=== PATIENT | female | born 1950 | race American Indian/Alaskan Native ===

== ENCOUNTER 2020-04-08 20:15 | Inpatient (IN) | payer OTHER ==
[2020-04-08] MEDS ORDERED: METHYLPREDNISOLONE 125 MG INJ ONE ×3 (20:25→21:38)
[2020-04-08] MEDS ORDERED: RSI MEDICATION KIT IV ONE (20:33)
[2020-04-08] MEDS ORDERED: LEVALBUTEROL 1.25 MG/3 ML NEB ONE (20:46)
[2020-04-08] MEDS ORDERED: FUROSEMIDE 40 MG/4 ML VIAL ONE (20:47)
[2020-04-08 20:50] LABS: Absolute Lymphocytes (CBC) 2.9 K/uL (0.7-4.9); Basophils % 0.5 % (0-1.3); Hematocrit 43.8 % (36.0-45.0); Lymphocytes % 22.2 % (15.3-44.8); MPV 9.8 fL (7.6-11.3); RBC Red Blood Cell Count 5.02 M/uL (3.86-4.86)
[2020-04-08 20:59] LABS: Protime INR 0.98
--- NOTE | 2020-04-08 20:59 | RAD REPORT ---
EXAM DESCRIPTION: RAD - Chest Single View - 04/08/2020 8:48 pm CLINICAL HISTORY: DYSPNEA Chest pain. COMPARISON: <Comparisons> FINDINGS: Portable technique limits examination quality. Mild bilateral interstitial lung opacities are present, slightly greater on the right, suspicious for interstitial pneumonitis/ viral pneumonitis. The heart is mildly enlarged in size. No displaced frac tures.
[2020-04-08 21:05] LABS: ALT/SGPT 29 U/L (12-78); AST/SGOT 20 U/L (15-37); Albumin 4.3 g/dL (3.4-5.0); Alkaline Phosphatase 129 U/L (45-117); Amylase 69 U/L (25-115); BUN Blood Urea Nitrogen 25 mg/dL (7-18); Bicarbonate 29 mmol/L (21-32); Bilirubin Direct < 0.1 mg/dL (0-0.2); Bilirubin Total 0.3 mg/dL (0.2-1.0); CKMB Creatine Kinase MB 1.8 ng/mL (0.3-3.6); Creatine Phosphokinase 79 U/L (26-192); Glucose Level 291 mg/dL (74-106); Lipase 114 U/L (73-393); Potassium 4.1 mmol/L (3.5-5.1); Protein, Total 8.1 g/dL (6.4-8.2); Sodium Level 139 mmol/L (136-145); Troponin (Emerg Dept Use Only) < 0.02 ng/mL (0.0-0.045)
[2020-04-08 21:20] LABS: Urine Blood TRACE (NEG); Urine Glucose TRACE (NEG); Urine Protein 3+ (NEG); Urine Specific Gravity 1.025 (1.005-1.030)
[2020-04-08] MEDS ORDERED: NA CHLORIDE 0.9% 250 ML ONE (21:51)
[2020-04-08] MEDS ORDERED: AZITHROMYCIN 500 MG INJ IVPB ONE (21:51)
[2020-04-08] MEDS ORDERED: CEFTRIAXONE/SWI 1gm 1 GM/10 ML SYR ONE (21:52)
[2020-04-08 22:14] LABS: Urine Bacteria <20 /HPF (<20); Urine Culture Reflex Order NOT NEEDED; Urine RBC <5 /HPF (NONE SEEN)
--- NOTE | 2020-04-08 22:26 | ER ---
Nurse's Notes [facility] Name: Ruth Aguero Age: 69 yrs Sex: Female : 1950 Arrival Date: 04/08/2020 Time: 20:20 Bed 4 Private MD: Diagnosis: Acute respiratory failure with hypoxia;Pneumonia due to other specified bacteria Presentation: 04/08 20:15 Chief complaint: EMS states: PATIENT DOES NOT HAVE ANY COMPLAINS PRIOR. WITH SUDDEN rv ONSET OF SOB. 72% OXYGEN SATURATION AT THE SCENE, GIVEN OXYGEN TREATMENT. DENIES ANY PAIN. 20:15 Coronavirus screen: Patient denies a cough. Patient reports shortness of breath or rv difficulty breathing. Patient denies measured and/or subjective temperature greater than 100.4F prior to today's visit. Patient denies travel on a cruise ship or to a country the [facility] currently lists as an affected area. Patient denies contact with known and/or suspected case of COVID-19. Ebola Screen: No symptoms or risks identified at this time. Initial Sepsis Screen: Does the patient meet any 2 criteria? RR > 20 per min. HR > 90 bpm. Yes Does the patient have a suspected source of infection? Yes: Productive cough/pneumonia. Risk Assessment: Do you want to hurt yourself or someone else? Patient reports no desire to harm self or others. Onset of symptoms was April 08, 2020 at 20:00. 20:15 Method Of Arrival: EMS: [facility] rv 21:21 Acuity: ALEX 2 rv Triage Assessment: 20:15 General: Appears uncomfortable, ill. rv Historical: - Allergies: 21:17 No Known Allergies; rv - PMHx: 21:17 Hypertension; Diabetes - IDDM; Angina; rv - PSHx: 21:17 Heart stents; rv - Immunization history:: Adult Immunizations up to date. - Social history:: Smoking status: Patient denies any tobacco usage or history of. Screenin:21 Abuse screen: Denies threats or abuse. Denies injuries from another. Nutritional rv screening: No deficits noted. Tuberculosis screening: No symptoms or risk factors identified. Fall Risk None identified. Assessment: 21:12 General: Appears uncomfortable, ill, Behavior is restless. Pain: Denies pain. Neuro: rv Level of Consciousness is awake, alert, obeys commands, Oriented to person, place, time, situation. Cardiovascular: Rhythm is sinus tachycardia. Respiratory: Airway is patent Respiratory effort is labored, Respiratory pattern is tachypnea Patient placed on BiPAP: FiO2%: 40 Breath sounds with wheezes bilaterally. GI: Abdomen is round distended. Derm: Skin is intact. 21:20 Reassessment: PATIENT VERBALIZED THAT SHE IS FEELING BETTER. COMFORTABLE ON BIPAP. rv ALERT AND ORIENTED. Patient states feeling better. Patient states symptoms have improved. Neuro: Level of Consciousness is awake, alert, obeys commands, Oriented to person, place, time, situation. Respiratory: Airway is patent Respiratory effort is even, unlabored. 22:40 General: Appears comfortable, Behavior is calm, cooperative. Neuro: Level of rv Consciousness is awake, alert, obeys commands, Oriented to person, place, time, situation. Cardiovascular: Rhythm is sinus rhythm. Respiratory: Airway is patent Respiratory effort is even, unlabored. 23:43 Reassessment: DAUGHTER ASKED ABOUT THE POSSIBILITY OF TRANSFERRING THE PATIENT TO OTHER HOSPITAL. EXPLAINED THE PLAN OF CARE TO THE RELATIVE. REGAN SEGURA ALSO TALKED TO THE DAUGHTER. Patient states symptoms have improved. 04/09 00:06 Reassessment: BIPAP DISCONTINUED. GIVEN OXYGEN VIA NASAL CANNULA, 2 LPM. RESPIRATORY rv STATUS STABLE. Respiratory: Airway is patent Respiratory effort is even, unlabored. Vital Signs: 04/08 20:30 BP 177 / 132; Pulse 105; Resp 27; Temp 97; Pulse Ox 100% on 40% BiPAP; rv 20:30 Weight 68.04 kg; Pain 0/10; rv 20:45 BP 191 / 78; Pulse 95; Resp 28; Pulse Ox 100% on 40% BiPAP; rv 21:00 BP 167 / 82; Pulse 90; Resp 27; Temp 96.9; Pulse Ox 100% on 40% BiPAP; rv 21:15 BP 185 / 76; Pulse 85; Resp 27; Temp 96.9(C); Pulse Ox 100% on 40% BiPAP; rv 21:30 BP 183 / 74; Pulse 82; Resp 26; Temp 97; Pulse Ox 100% on 40% BiPAP; rv 21:45 BP 183 / 75; Pulse 81; Resp 22; Temp 97.1(C); Pulse Ox 100% on 40% BiPAP; rv 22:30 BP 152 / 56; Pulse 84 MON; Resp 22; Temp 97.5(C); Pulse Ox 100% on 40% BiPAP; rv 23:00 BP 142 / 73; Pulse 84 MON; Resp 22; Temp 97.4(C); Pulse Ox 100% on 40% BiPAP; rv 23:30 BP 165 / 86; Pulse 86 MON; Resp 25; Temp 97.5(C); Pulse Ox 100% on 40% BiPAP; rv 04/09 00:07 BP 150 / 66; Pulse 84 MON; Resp 21; Temp 98.4(C); Pulse Ox 99% on 2 lpm NC; rv 22:30 Normal Sinus Rhythm rv 23:00 Normal Sinus Rhythm rv 23:30 Normal Sinus Rhythm rv 04/09 00:07 Normal Sinus Rhythm rv ED Course: 04/08 20:20 Patient arrived in ED. sg 20:26 Anjel Harris is Primary Nurse. 20:30 Initial lab(s) drawn, by ED staff, sent to lab. First set of blood cultures drawn by ED sg staff. 20:30 Inserted saline lock: 18 gauge in left antecubital area, using aseptic technique. Blood rv collected. 20:30 Patient has correct armband on for positive identification. Placed in gown. Bed in low rv position. Call light in reach. Side rails up X2. patient monitor on. Pulse ox on. NIBP on. 20:30 Door closed. Warm blanket given. Head of bed elevated. rv 20:36 Regan Segura PA is PHCP. cp 20:36 Marcelo Mcclellan MD is Attending Physician. cp 20:40 Second set of blood cultures drawn by ED staff. sg 20:40 Inserted saline lock: 18 gauge in right forearm, using aseptic technique. Blood rv collected. 20:45 Terrazas cath inserted, using sterile technique, 16 Fr., by co, balloon inflated, to rv gravity drainage, urine specimen collected. Patient tolerated well. 20:49 Chest Single View XRAY In Process Unspecified. EDMS 21:13 Arm band placed on. sg 21:24 Triage completed. rv 22:24 Paulie Anne MD is Hospitalizing Provider. cp 23:36 CT Chest For PE Angio In Process Unspecified. EDMS 04/09 00:06 No provider procedures requiring assistance completed. IV is patent, with fluids rv infusing freely, with good blood return, Patient admitted, IV remains in place. Administered Medications: 04/08 20:36 CANCELLED (Physician Discretion): NS 0.9% (30 ml/kg) 30 ml/kg IV at bolus once; Sepsis cp Protocol 20:50 Drug: Lasix 40 mg Route: IVP; Site: right forearm; rv 21:56 Follow up: Response: No adverse reaction rv 21:00 Drug: SOLU-Medrol 125 mg Route: IVP; Site: right forearm; rv 21:56 Follow up: Response: No adverse reaction; Marked relief of symptoms rv 21:00 Drug: Xopenex (3) 1.25 mg Route: Inhalation; rv 21:57 Follow up: Response: Marked relief of symptoms rv 21:35 Drug: Rocephin - (cefTRIAXone) 1 grams Route: IVPB; Infused Over: 30 mins; Site: left rv antecubital; 21:56 Follow up: IV Status: Completed infusion rv 21:36 Drug: Zithromax 500 mg Route: IVPB; Infused Over: 1 hrs; Site: left antecubital; rv 22:41 Follow up: IV Status: Completed infusion; IV Intake: 250ml rv Intake: 22:41 IV: 250ml; Total: 250ml. rv Output: 21:57 Urine: 700ml (Terrazas); Total: 700ml. rv Outcome: 22:25 Decision to Hospitalize by Provider. cp 04/09 00:09 Admitted to Tele accompanied by tech, via stretcher, room 406, Report called to PATI roque RN Condition: good Instructed on the need for admit. 00:10 Patient left the ED. rv Signatures: Dispatcher [employer] Shahab Melgar, RN RN Regan Cunha PA PA cp Habalo, Winsy wh Vicente, Ronaldo, RN RN rv Corrections: (The following items were deleted from the chart) 04/08 21:29 21:15 BP 185 / ???; Pulse 76bpm; Resp 27bpm; Pulse Ox 100% 02 40% BiPAP; Temp 96.9F rv Catheter; rv
--- NOTE | 2020-04-08 22:26 | EDPHYS ---
Physician Documentation [facility] Name: Ruth Aguero Age: 69 yrs Sex: Female : 1950 Arrival Date: 04/08/2020 Time: 20:20 Bed 4 Private MD: ED Physician Marcelo Mcclellan HPI: 04/08 20:40 This 69 yrs old Other Female presents to ER via EMS with complaints of Shortness of cp Breath. 20:40 The patient has shortness of breath at rest. Onset: The symptoms/episode began/occurred cp today. Duration: The symptoms are continuous, and are steadily getting worse. Associated signs and symptoms: Pertinent negatives: chest pain, productive cough, diaphoresis, fever. Severity of symptoms: in the emergency department the symptoms have improved mildly. The patient has experienced similar episodes in the past, a few times. Historical: - Allergies: 21:17 No Known Allergies; rv - PMHx: 21:17 Hypertension; Diabetes - IDDM; Angina; rv - PSHx: 21:17 Heart stents; rv - Immunization history:: Adult Immunizations up to date. - Social history:: Smoking status: Patient denies any tobacco usage or history of. ROS: 20:45 Constitutional: Negative for fever, poor PO intake. cp 20:45 Eyes: Negative for injury, pain, redness, and discharge. cp 20:45 Cardiovascular: Negative for chest pain. 20:45 Respiratory: Positive for shortness of breath, at rest. 20:45 Abdomen/GI: Negative for abdominal pain, nausea, vomiting, and diarrhea. 20:45 Skin: Negative for rash. 20:45 Neuro: Negative for altered mental status, headache, syncope, weakness. 20:45 All other systems are negative. Exam: 20:30 ECG was reviewed by the Attending Physician. cp 20:48 Head/Face: Normocephalic, atraumatic. cp 20:48 Constitutional: The patient appears in no acute distress, alert, awake, non-diaphoretic, non-toxic, well developed, well nourished. 20:48 Eyes: Periorbital structures: appear normal, Conjunctiva: normal, no exudate, no injection, Lids and lashes: appear normal, bilaterally. 20:48 ENT: External ear(s): are unremarkable, Ear canal(s): are normal, clear, TM's: dullness, bilaterally, Nose: is normal, Mouth: Lips: moist, Oral mucosa: pink and intact, moist, Posterior pharynx: is normal, airway is patent, no erythema, no exudate. 20:48 Chest/axilla: Inspection: normal, Palpation: is normal, no crepitus, no tenderness. 20:48 Cardiovascular: Rate: normal, Rhythm: regular, Edema: is not appreciated, JVD: is not appreciated. 20:48 Respiratory: the patient does not display signs of respiratory distress, Respirations: labored breathing, is not present, accessory muscle usage, is absent, intercostal retractions, are absent, splinting, is not noted, tachypnea, is not appreciated, Breath sounds: decreased breath sounds, that are mild, throughout, rhonchi, are not appreciated, stridor, is not appreciated, wheezing: is not appreciated. 20:48 Abdomen/GI: Exam negative for discomfort, distension, guarding, Inspection: abdomen appears normal. 20:48 Back: pain, is absent, ROM is normal. 20:48 Skin: no rash present. 20:48 Neuro: Orientation: to person, place \T\ time. Mentation: is normal, Motor: moves all fours, strength is normal. Vital Signs: 20:30 BP 177 / 132; Pulse 105; Resp 27; Temp 97; Pulse Ox 100% on 40% BiPAP; rv 20:30 Weight 68.04 kg; Pain 0/10; rv 20:45 BP 191 / 78; Pulse 95; Resp 28; Pulse Ox 100% on 40% BiPAP; rv 21:00 BP 167 / 82; Pulse 90; Resp 27; Temp 96.9; Pulse Ox 100% on 40% BiPAP; rv 21:15 BP 185 / 76; Pulse 85; Resp 27; Temp 96.9(C); Pulse Ox 100% on 40% BiPAP; rv 21:30 BP 183 / 74; Pulse 82; Resp 26; Temp 97; Pulse Ox 100% on 40% BiPAP; rv 21:45 BP 183 / 75; Pulse 81; Resp 22; Temp 97.1(C); Pulse Ox 100% on 40% BiPAP; rv 22:30 BP 152 / 56; Pulse 84 MON; Resp 22; Temp 97.5(C); Pulse Ox 100% on 40% BiPAP; rv 23:00 BP 142 / 73; Pulse 84 MON; Resp 22; Temp 97.4(C); Pulse Ox 100% on 40% BiPAP; rv 23:30 BP 165 / 86; Pulse 86 MON; Resp 25; Temp 97.5(C); Pulse Ox 100% on 40% BiPAP; rv 04/09 00:07 BP 150 / 66; Pulse 84 MON; Resp 21; Temp 98.4(C); Pulse Ox 99% on 2 lpm NC; rv 22:30 Normal Sinus Rhythm rv 23:00 Normal Sinus Rhythm rv 23:30 Normal Sinus Rhythm rv 04/09 00:07 Normal Sinus Rhythm rv MDM: 04/08 20:40 Patient medically screened. cp 21:38 Antibiotic administration: Rocephin and Zithromax given. cp 22:10 Data reviewed: vital signs, nurses notes, lab test result(s), EKG, radiologic studies, cp plain films, I have discussed the patient's presentation/case with the attending Emergency Department Physician; and as a result, I will admit patient. 22:10 Test interpretation: by ED physician or midlevel provider: ECG. Response to treatment: cp the patient's symptoms have markedly improved after treatment. Physician consultation: Paulie Anne MD was contacted at 22:05, regarding admission, to the telemetry unit. patient's condition. 04/08 20:27 Order name: Amylase, Serum; Complete Time: 23:24 04/08 20:27 Order name: Basic Metabolic Panel; Complete Time: 23:24 04/08 22:07 Interpretation: Normal except: GLUC 291; BUN 25; GFR 56. 04/08 20:27 Order name: Blood Culture Adult (2) 04/08 20:27 Order name: CBC with Diff; Complete Time: 21:01 04/08 21:02 Interpretation: Normal except: WBC 12.9; RBC 5.02; NEUT A 9.0. 04/08 20:27 Order name: Ckmb; Complete Time: 23:24 04/08 20:27 Order name: CPK; Complete Time: 23:24 04/08 20:27 Order name: Lactate; Complete Time: 21:30 04/08 20:27 Order name: LFT's; Complete Time: 23:24 04/08 20:27 Order name: Lipase; Complete Time: 23:24 04/08 20:27 Order name: Procalcitonin; Complete Time: : 04/08 20:27 Order name: Protime (+inr); Complete Time: : 04/08 20:27 Order name: Ptt, Activated; Complete Time: : 04/08 20:27 Order name: Troponin (emerg Dept Use Only); Complete Time: 23: 04/08 20:27 Order name: Urine Microscopic Only; Complete Time: 22: 04/08 20:27 Order name: Chest Single View XRAY; Complete Time: 21: 04/08 20:53 Order name: Flu; Complete Time: 22: 04/08 20:53 Order name: Strep; Complete Time: 22: 04/08 20:53 Order name: COVID-19; Complete Time: 22: 04/08 21:04 Order name: Urine Dipstick--Ancillary (enter results); Complete Time: 21:29 [facility] 04/08 21:34 Order name: CT Chest For PE Angio 04/08 22:16 Order name: LAB Add On 04/08 22:21 Order name: NT PRO-BNP; Complete Time: 23:24 [facility] 04/08 23:24 Interpretation: Abnormal: NT PRO-BNP 195. 04/08 23:36 Order name: Troponin I [facility] 04/08 23:36 Order name: Troponin I [facility] 04/08 20:27 Order name: Accucheck; Complete Time: : 04/08 20:27 Order name: Cardiac monitoring; Complete Time: 22: 04/08 20:27 Order name: EKG - Nurse/Tech; Complete Time: 22: 04/08 20:27 Order name: IV Saline Lock - Large Bore; Complete Time: : 04/08 20:27 Order name: Labs collected and sent; Complete Time: : 04/08 20:27 Order name: O2 Per Protocol; Complete Time: 22: 04/08 20:27 Order name: O2 Sat Monitoring; Complete Time: : 04/08 20:27 Order name: Urine Dipstick-Ancillary (obtain specimen); Complete Time: : 04/08 23:35 Order name: CONS Physician Consult EDMS EC:30 Rate is 107 beats/min. Rhythm is regular. TX interval is normal. QRS interval is cp normal. QT interval is normal. T waves are Inverted in leads I, aVL. Interpreted by me. Reviewed by me. Administered Medications: 20:36 CANCELLED (Physician Discretion): NS 0.9% (30 ml/kg) 30 ml/kg IV at bolus once; Sepsis cp Protocol 20:50 Drug: Lasix 40 mg Route: IVP; Site: right forearm; rv 21:56 Follow up: Response: No adverse reaction rv 21:00 Drug: SOLU-Medrol 125 mg Route: IVP; Site: right forearm; rv 21:56 Follow up: Response: No adverse reaction; Marked relief of symptoms rv 21:00 Drug: Xopenex (3) 1.25 mg Route: Inhalation; rv 21:57 Follow up: Response: Marked relief of symptoms rv 21:35 Drug: Rocephin - (cefTRIAXone) 1 grams Route: IVPB; Infused Over: 30 mins; Site: left rv antecubital; 21:56 Follow up: IV Status: Completed infusion rv 21:36 Drug: Zithromax 500 mg Route: IVPB; Infused Over: 1 hrs; Site: left antecubital; rv 22:41 Follow up: IV Status: Completed infusion; IV Intake: 250ml rv Disposition: 04/09 07:23 Co-signature as Attending Physician, Marcelo Mcclellan MD I agree with the assessment and [facility] plan of care. Disposition: 04/08/20 22:25 Hospitalization ordered by Paulie Anne for Inpatient Admission. Preliminary diagnosis are Acute respiratory failure with hypoxia, Pneumonia due to other specified bacteria. - Bed requested for Telemetry/MedSurg (Inpatient). - Status is Inpatient Admission. rv - Condition is Stable. - Problem is new. - Symptoms have improved. Signatures: Dispatcher [employer] [facility] Etta Marquez RN RN mw Page, Corey, PA PA cp Habalo, Winsy Cliff Pérez RN RN rv Holmes, Maurice, MD MD [facility] Corrections: (The following items were deleted from the chart) 04/08 20:36 20:27 NS 0.9% (30 ml/kg) 30 ml/kg IV at bolus once; Sepsis Protocol ordered. cp 22:21 22:16 PROBNP+C.LAB.BRZ ordered. [facility] EDMS 22:43 22:25 Hospitalization Ordered by Paulie Anne MD for Inpatient Admission. Preliminary diagnosis is Acute respiratory failure with hypoxia; Pneumonia due to other specified bacteria. Bed requested for Telemetry/MedSurg (Inpatient). Status is Inpatient Admission. Condition is Stable. Problem is new. Symptoms have improved. 22:44 22:43 04/08/2020 22:25 Hospitalization Ordered by Paulie Anne MD for Inpatient mw Admission. Preliminary diagnosis is Acute respiratory failure with hypoxia; Pneumonia due to other specified bacteria. Bed requested for Telemetry/MedSurg (Inpatient). Status is Inpatient Admission. Condition is Stable. Problem is new. Symptoms have improved. 23:36 23:35 Troponin I ordered. [facility] 23:36 23:35 Troponin I ordered. [facility] 23:36 23:35 Troponin I ordered. [facility] 04/09 00:10 04/08 22:44 04/08/2020 22:25 Hospitalization Ordered by Paulie Anne MD for Inpatient rv Admission. Preliminary diagnosis is Acute respiratory failure with hypoxia; Pneumonia due to other specified bacteria. Bed requested for Telemetry/MedSurg (Inpatient). Status is Inpatient Admission. Condition is Stable. Problem is new. Symptoms have improved. 04/09 11:32 11:30 This 69 yrs old Other Female presents to ER via EMS with complaints of Shortness cp of Breath. cp 11:40 04/08 23:16 Constitutional: The patient appears in no acute distress, alert, awake, cp non-diaphoretic, non-toxic, well developed, well nourished, cp 04/09 11:40 04/08 23:16 Head/Face: Normocephalic, atraumatic. cp cp 04/09 11:40 04/08 23:16 Eyes: Periorbital structures: appear normal, Conjunctiva: normal, no cp exudate, no injection, Lids and lashes: appear normal, bilaterally, cp 04/09 11:40 04/08 23:16 ENT: External ear(s): are unremarkable, Ear canal(s): are normal, clear, cp TM's: dullness, bilaterally, Nose: is normal, Mouth: Lips: moist, Oral mucosa: pink and intact, moist, Posterior pharynx: is normal, airway is patent, no erythema, no exudate, cp 04/09 11:40 04/08 23:16 Chest/axilla: Inspection: normal, Palpation: is normal, no crepitus, no cp tenderness, cp 04/09 11:40 04/08 23:16 Cardiovascular: Rate: normal, Rhythm: regular, Edema: is not appreciated, cp JVD: is not appreciated, cp 04/09 11:04/08 23:16 Respiratory: the patient does not display signs of respiratory distress, cp Respirations: labored breathing, is not present, accessory muscle usage, is absent, intercostal retractions, are absent, splinting, is not noted, tachypnea, is not appreciated, Breath sounds: decreased breath sounds, that are mild, throughout, rhonchi, are not appreciated, stridor, is not appreciated, wheezing: is not appreciated, cp 04/09 11:04/08 23:16 Abdomen/GI: Exam negative for discomfort, distension, guarding, Inspection: cp abdomen appears normal, cp 04/09 11:40 04/08 23:16 Back: pain, is absent, ROM is normal, cp cp 04/09 11:04/08 23:16 Skin: no rash present. cp cp 04/09 11:04/08 23:16 Neuro: Orientation: to person, place \T\ time. Mentation: is normal, Motor: cp moves all fours, strength is normal, cp
[2020-04-08 22:33] LABS: NT PRO-BNP 195 pg/mL (<125)
[2020-04-08] MEDS ORDERED: ACETAMINOPHEN 500 MG TAB PO PRN (23:29)
[2020-04-08] MEDS ORDERED: NA CHLORIDE 0.9% 1,000 ML IV SCH (23:45)
--- NOTE | 2020-04-09 00:51 | P.HP ---
Certification for Inpatient Patient admitted to: Inpatient With expected LOS: >2 Midnights Patient will require the following post-hospital care: None Practitioner: I am a practitioner with admitting privileges, knowledge of patient current condition, hospital course, and medical plan of care. Services: Services provided to patient in accordance with Admission requirements found in Title 42 Section 412.3 of the Code of Federal Regulations Patient History Date of Service: 04/09/20 Reason for admission: Acute respiratory distress History of Present Illness: Patient is a 69-year-old female came to the hospital with respiratory distress. Patient was having difficulty breathing and came into the ER. Her family lives in [place]. I am not really sure why she was brought to our facility, but there has been over crowding in the facilities in the [place] area. She has been at [facility] a year ago for similar episode of respiratory dist ress. At that time, she was given BiPAP support and her symptoms gradually improved. The family relates that it was similar to an asthma exacerbation. However, in light of the fact that she has a history of Coronary artery disease with stent placement my concern is that she may have CHF. Her BNP was normal. However, she does have JVP distention. She does not have any lower extremity edema but her chest x-ray shows bilateral infiltrates. At this time, I will admit patient to the hospital for further evaluation. Allergies No Known Allergies Allergy (Verified 04/09/20 00:05) - Past Medical/Surgical History -: Coronary artery disease -: Diabetes Past Surgical History: Patient denies surgical history - Family History Father Family History: Reviewed- Non-Contributory - Social History Smoking Status: Never smoker Alcohol use: No CD- Drugs: No Review of Systems 10-point ROS is otherwise unremarkable Physical Examination - Vital Signs Temperature: 98.8 F Blood Pressure: 210/110 Respirations: 18 Pulse Ox (%): 96 - Physical Exam General: Alert, In no apparent distress, Oriented x3 HEENT: Atraumatic, PERRLA, Mucous membr. moist/pink, EOMI, Sclerae nonicteric Neck: Supple, 2+ carotid pulse no bruit, No LAD, Without JVD or thyroid abnormality Respiratory: Diminished, Crackles/rales, Expiratory wheezes Cardiovascular: Regular rate/rhythm, Normal S1 S2, No murmurs Gastrointestinal: Normal bowel sounds, Soft and benign, Non-distended, No tenderness Musculoskeletal: No clubbing, No swelling, No tenderness Integumentary: No rashes Neurological: Normal gait, Normal speech, Normal strength at 5/5 x4 extr, Normal tone, Sensation intact, Cranial nerves 3-12 intact, Normal affect Lymphatics: No axilla or inguinal lymphadenopathy - Studies Laboratory Data (last 24 hrs) 04/08/20 20:30: PT 11.6, INR 0.98, APTT 33.8 04/08/20 20:30: WBC 12.9 H, Hgb 14.6, Hct 43.8, Plt Count 228 04/08/20 20:30: Sodium 139, Potassium 4.1, BUN 25 H, Creatinine 0.99, Glucose 291 H, Total Bilirubin 0.3, AST 20, ALT 29, Alkaline Phosphatase 129 H, Amylase 69, Lipase 114 Microbiology Data (last 24 hrs): 04/08/20 20:50 Nasopharnyx Influenza Type A Antigen Screen - Final 04/08/20 20:50 Nasopharnyx Influenza Type B Antigen Screen - Final 04/08/20 20:50 Nasopharnyx Coronavirus COVID-19 PCR - Final 04/08/20 20:50 Throat Group A Streptococcus Rapid Screen - Final Assessment & Plan - Problems (Diagnosis) (1) Acute CHF Current Visit: Yes Status: Acute Qualifiers: Heart failure type: diastolic Qualified Code(s): I50.31 - Acute diastolic (congestive) heart failure (2) Malignant hypertension Current Visit: Yes Status: Acute (3) Pulmonary edema Current Visit: Yes Status: Acute (4) Pneumonia Current Visit: Yes Status: Acute (5) Type 2 diabetes mellitus Current Visit: Yes Status: Acute Qualifiers: Diabetes mellitus complication status: without complication (6) History of heart artery stent Current Visit: Yes Status: Acute (7) History of coronary artery disease Current Visit: Yes Status: Acute - Plan 1. Echocardiogram 2. Aggressive diuresis 3. COVID-19 pneumonia; droplet precautions 4. Cardiology consultation 5. Pulmonary consultation 6. Strict I's and O's 7. Repeat CXR 8. Daily weights 9. Continue with albuterol inhaler therapy; IV dexamethasone; zinc and vitamin-C 10. Nitropaste and diuresing for blood pressure control 11. O2 per protocol; BiPAP support 12. GI and DVT prophylaxis - Advance Directives Does patient have a Living Will: No Does patient have a Durable POA for Healthcare: No
[2020-04-09] MEDS ORDERED: MORPHINE 4 MG/ML SYR IV ONE (01:24)
[2020-04-09] MEDS ORDERED: NITROGLYCERIN 1 GM PKT TD ONE (01:25)
[2020-04-09] MEDS ORDERED: ALBUTEROL INHALER 60 PUFF/8 GM IH PRN (01:28)
[2020-04-09] MEDS ORDERED: ALBUTEROL 2.5 MG/3 ML NEB SOL NEB ONE (01:29)
[2020-04-09] MEDS ORDERED: IPRATROPIUM BROM 0.5MG/2.5ML NEB ONE (01:29)
[2020-04-09] MEDS ORDERED: FUROSEMIDE 40 MG/4 ML VIAL IV ONE (01:31)
[2020-04-09] MEDS ORDERED: METHYLPREDNISOLONE 125 MG INJ IV ONE (01:40)
[2020-04-09] MEDS ORDERED: FUROSEMIDE 20 MG/ 2ML VIAL ONE (01:42)
[2020-04-09] MEDS ORDERED: METHYLPREDNISOLONE 125 MG INJ ONE (01:44)
[2020-04-09] MEDS: BUDESONIDE 0.5 MG/2 ML NEB NEB SCH ×2 (02:00→11:00)
[2020-04-09 02:57] LABS: Arterial Blood Carboxyhemoglob 0.7 % (0-1.5); Blood Gas Oxyhemoglobin 96.5 % (94-97); Blood O2 Saturation 98.4 % (92-98.5)
[2020-04-09 03:58] VITALS: BMI 34.2
[2020-04-09 04:43] LABS: Absolute Lymphocytes (CBC) 0.6 K/uL (0.7-4.9); Basophils % 0.3 % (0-1.3); Hematocrit 40.9 % (36.0-45.0); Lymphocytes % 5.9 % (15.3-44.8); MPV 10.1 fL (7.6-11.3); RBC Red Blood Cell Count 4.65 M/uL (3.86-4.86)
[2020-04-09 04:56] LABS: Albumin 3.9 g/dL (3.4-5.0); Bilirubin Total 0.3 mg/dL (0.2-1.0); Phosphorus 3.7 mg/dL (2.5-4.9); Potassium 4.4 mmol/L (3.5-5.1); Protein, Total 7.5 g/dL (6.4-8.2); Troponin I 0.36 ng/mL (0.0-0.045)
[2020-04-09 05:30] LABS: Blood Morphology Comment NOT SEEN (NOT SEEN); Platelet Estimate ADEQ
[2020-04-09] MEDS ORDERED: FUROSEMIDE 40 MG/4 ML VIAL IV SCH ×2 (07:00→09:00)
[2020-04-09] MEDS: CEFTRIAXONE/SWI 1gm 1 GM/10 ML SYR IV SCH ×2 (08:21→20:34)
[2020-04-09] MEDS: ENOXAPARIN 40 MG/0.4 ML SQ SCH (08:21)
--- NOTE | 2020-04-09 08:56 | RAD REPORT ---
EXAM DESCRIPTION: CT - Chest For Pe Angio - 04/09/2020 2:25 am CLINICAL HISTORY: SOB TECHNIQUE: Contiguous axial images obtained through the chest during angiographic phase following th e uneventful administration of IV contrast. Sagittal and coronal reformatted images were provided. NH P reformatted images were provided. This exam was performed according to our departmental dose-optimization program, which includes autom ated exposure control, adjustment of the mA and/or kV according to patient size and/or use of iterati ve reconstruction technique. COMPARISON: No prior exams provided for comparison. FINDINGS: Diagnostic quality: There is good opacification of the pulmonary arterial tree. Lungs: Mild interstitial thickening and patchy groundglass opacification throughout the lungs bilater ally. Mild bibasilar consolidation. Airways are patent. Pleura: Small bilateral pleural effusions. No pneumothorax. Heart and pericardium: The heart is enlarged. Coronary artery calcification. No pericardial effusion. Mediastinum and rama: No pathologically enlarged lymph nodes. Lower neck and chest wall: 10 mm left breast soft tissue nodule (series 403 image 32 and series 401 i mage 16). Vessels: No pulmonary arterial filling defects. Mild atherosclerotic disease. No thoracic aortic aneu rysm. Upper abdomen: The liver is enlarged. Bilateral adrenal nodular thickening. Bones: Remote T12 and L1 compression fractures. IMPRESSION: 1. No pulmonary embolic disease. 2. Findings which may be related to mild pulmonary congestion including small bilateral pleural eff usions. Superimposed infection not excluded. 3. Other findings as above. Electronically signed by: Miladis Espinoza MD 04/08/2020 11:51 PM CDT Due to temporary technical issues with the PACS/Fluency reporting system, reports are being signed by the in house radiologist without review as a courtesy to ensure prompt reporting. The interpreting r adiologist is fully responsible for the content of the report.
[2020-04-09] MEDS ORDERED: METHYLPREDNISOLONE 40 MG INJ IV SCH (09:00)
[2020-04-09] MEDS ORDERED: CEFTRIAXONE 1 GM/NS 50 ML 1 GM/50 ML BAG IV SCH (09:00)
[2020-04-09] MEDS ORDERED: AZITHROMYCIN IV 500 MG in NA CHLORIDE 0.9% 250 ML IVPB SCH (09:00)
[2020-04-09] MEDS: ARFORMOTEROL TARTRATE 15 MCG/2 ML VIAL.NEB NEB SCH ×2 (11:00→23:00)
--- NOTE | 2020-04-09 11:38 | P.CNS ---
Date of Consult: 04/09/20 Reason for Consult: Respiratory failure Chief Complaint: Acute respiratory distress History of Present Illness: c/o SOb.acute worsening. SOB SOB - 1 year. Went to Er last year. no Dx. No smoking. no fever or chills. Edema. of LE. CAD Allergies No Known Allergies Allergy (Verified 04/09/20 00:05) Home Medications: Aspirin [Adult Low Dose Aspirin EC] 81 mg PO DAILY 04/09/20 Atorvastatin Calcium 40 mg PO DAILY 04/09/20 Bimatoprost [Lumigan Opthalmic Drops] 1 drop OP BEDTIME 04/09/20 Brinzolamide [Azopt] 1 drop OP TID 04/09/20 Carvedilol [Coreg] 12.25 mg PO BID 04/09/20 Clopidogrel Bisulfate [Plavix*] 75 mg PO DAILY 04/09/20 Furosemide [Lasix] 60 mg PO BIDL 04/09/20 Gabapentin 300 mg PO BID 04/09/20 Hydroxychloroquine [Plaquenil] 200 mg PO BID 04/09/20 Insulin Glargine,Hum.rec.anlog [Lantus Solostar] 30 unit SQ BEDTIME 04/09/20 Insulin Glargine,Hum.rec.anlog [Lantus Solostar] 34 unit SQ DAILY 04/09/20 Insulin Lispro [Humalog] 14 unit SQ AC 04/09/20 Isosorbide Mononitrate [Isosorbide Mononitrate ER] 60 mg PO BID 04/09/20 Lisinopril [Zestril] 15 mg PO BID 04/09/20 Potassium Chloride [K-Dur] 20 meq PO DAILY 04/09/20 Sertraline [Zoloft] 50 mg PO DAILY 04/09/20 Temazepam 30 mg PO BEDTIME 04/09/20 - Past Medical/Surgical History Diabetic: Yes -: Coronary artery disease -: Diabetes -: HTN -: Heart stents - Family History Father Family History: Reviewed- Non-Contributory - Social History Alcohol use: No CD- Drugs: No Caffeine use: Yes Place of Residence: Home Physical Examination Temp Pulse Resp BP Pulse Ox 97.5 F 95 H 20 150/67 H 98 04/09/20 08:00 04/09/20 10:37 04/09/20 08:00 04/09/20 08:00 04/09/20 08:00 General: Alert Neck: Supple Respiratory: Crackles/rales, Expiratory wheezes Cardiovascular: Edema Gastrointestinal: Normal bowel sounds, Soft and benign Laboratory Data (last 24 hrs) 04/08/20 20:30: PT 11.6, INR 0.98, APTT 33.8 04/08/20 20:30: WBC 12.9 H, Hgb 14.6, Hct 43.8, Plt Count 228 04/08/20 20:30: Sodium 139, Potassium 4.1, BUN 25 H, Creatinine 0.99, Glucose 291 H, Total Bilirubin 0.3, AST 20, ALT 29, Alkaline Phosphatase 129 H, Amylase 69, Lipase 114 - Problems (1) Respiratory failure Current Visit: Yes Status: Acute Plan: Worseing SOb. [facility]/ Worseing SOb for past 5-8 months. DM and HTN, . LE edema Doubt COVID. Likely CHF CT scan no PE. ILD [place] COVID Hx of CAD Qualifiers: Chronicity: acute on chronic
[2020-04-09] MEDS ORDERED: ARFORMOTEROL TARTRATE 15 MCG/2 ML VIAL.NEB NEB SCH (11:48)
[2020-04-09] MEDS: SPIRONOLACTONE 25 MG TABLET PO SCH ×2 (12:31→20:32)
[2020-04-09] MEDS: HOME MED 1 EA UNK (Brinzolamide [Azopt] 1 DROP) OP SCH ×2 (14:00→21:00)
[2020-04-09] MEDS ORDERED: HYDRALAZINE HCL 20 MG/ML VIAL IV PRN (15:50)
[2020-04-09] MEDS: INSULIN LISPRO 100 UNIT/1 ML SQ SCH (16:44)
[2020-04-09] MEDS: FUROSEMIDE 40 MG/4 ML VIAL IV SCH (16:45)
[2020-04-09] MEDS: HYDRALAZINE HCL 25 MG TABLET PO SCH ×2 (16:55→20:32)
[2020-04-09] MEDS: GABAPENTIN 300 MG CAP PO SCH ×2 (17:50→20:33)
[2020-04-09] MEDS ORDERED: LABETALOL 20 MG/4ML SYRINGE IV PRN ×2 (18:17→21:58)
[2020-04-09] MEDS: VALSARTAN 160 MG TAB PO SCH ×2 (18:21→20:31)
--- NOTE | 2020-04-09 20:02 | CON ---
Date of Consultation: 04/09/2020 Reason For Consultation: Shortness of breath. History Of Present Illness: This is a 69-year-old female with a history of coronary artery disease, diabetes, congestive heart failure, presented with shortness of breath. Apparently, the patient was in the [employer] with similar episode where she was treated for heart failure and did well and needed to be on BiPAP. Has the same similar symptoms at this point. Significant orthopnea and shortness of breath at rest with generalized weakness and lower extremity edema. Denies having any c hest pain. Denies having any cough or fever or any sick contacts. Past Medical History: As outlined above in the HPI. Medications: Refer to reconciliation sheet for detailed list. Family History: No premature coronary artery disease or cancer. Allergies: NO KNOWN DRUG ALLERGIES. Social History: Does not smoke or drink. Does not use any drugs. Review of Systems: All systems reviewed and they were negative except for mentioned in the HPI. Physical Examination: Vital Signs: Temperature is 97.8, pulse 93, breathing at 20, blood pressure is 195/90, saturating 94 %. General: Pleasant elderly female, in mild respiratory distress. Head and Neck: Pupils are equa l, react to light. Intact eye movements. Positive JVD. No cervical lymphadenopathy. Neck: Supple. Thyroid is not enlarged. Lungs: Has a crackles in both bases with decreased inspira tory effort. Heart: Regular rate and rhythm. Tachycardic. Abdomen: Soft, nontender. Bowel sounds positive. No organomegaly. No masses or hernia. No rigidi ty or rebound. Extremities: No edema, clubbing, or cyanosis. Intact pulses. Skin: No rashes. Neurologic: Alert, awake, oriented x3. No acute focal deficit appreciated. Lymph nodes: No cervical or axillary lymphadenopathy. Investigations: Sodium 136, creatinine is 1.0, BUN 26, glucose 365. BNP is 536. CT scan of the [facility], pulmonary congestion with pleural effusion. No PE. Assessment And Plan: 1.Acute hypoxic respiratory failure and also mixed hypoxic and hypercapnic respiratory failure, on B iPAP, being followed by hospitalists and Pulmonary service. There is definitely a component of fluid overload. I agree with IV diuresis with oral Lasix 40 mg q.8 hours and obtain echocardiogram. Also to receive sets of cardiac enzymes to rule out myocardial infarction. I also recommend starting the patient on a nitro or nicardipine drip to minimize the afterload as the patient's blood pressure is extremely elevated. See below. 2.Hypertension. Very high blood pressure. Afterload reduction is indicated. Recommend continuous IV drip management for hypertension to keep blood pressure below 130 systolic. 3.Acute on chronic congestive heart failure exacerbation. Serial sets of cardiac enzymes. Obtain e cho and reduce afterload as above and IV diuretics. I appreciate the courtesy of this consultation. /OSMIN Voice ID: [id number] Report ID: [id number]
[2020-04-09] MEDS: carvediloL 12.5 MG TAB PO SCH (20:31)
[2020-04-09] MEDS: HYDROXYCHLOROQUINE 200MG TAB PO SCH (20:31)
[2020-04-09] MEDS: ISOSORBIDE MONO SR 60 MG TAB PO SCH (20:31)
[2020-04-09] MEDS: INSULIN GLARGINE 100 UNITS/ML SQ SCH (20:33)
[2020-04-09] MEDS: lisinopriL 10 MG TAB PO SCH (20:37)
[2020-04-09] MEDS ORDERED: LISINOPRIL PO SCH (21:00)
[2020-04-09] MEDS ORDERED: HOME MED 1 EA UNK (Temazepam [Temazepam] 30 MG) PO SCH (21:00)
[2020-04-09] MEDS ORDERED: GLUCAGON 1 MG/VIAL IM PRN (21:05)
[2020-04-09] MEDS ORDERED: D50W 25 GM/50 ML SYRINGE/VIAL IV PRN (21:05)
[2020-04-09] MEDS: ONDANSETRON 4 MG/2 ML VIAL IV PRN (21:40)
[2020-04-09] MEDS: INSULIN GLARGINE 100 UNITS/ML SQ ONE (22:53)
[2020-04-10] MEDS: TEMAZEPAM 15 MG CAP PO SCH ×2 (00:37→23:06)
[2020-04-10] MEDS: FUROSEMIDE 40 MG/4 ML VIAL IV SCH ×3 (02:00→17:29)
[2020-04-10] MEDS: ONDANSETRON 4 MG/2 ML VIAL IV PRN (06:19)
[2020-04-10] MEDS: ARFORMOTEROL TARTRATE 15 MCG/2 ML VIAL.NEB NEB SCH ×2 (08:23→21:08)
[2020-04-10] MEDS: POTASSIUM CL SA 10 MEQ TAB PO SCH (08:30)
[2020-04-10] MEDS: HYDROXYCHLOROQUINE 200MG TAB PO SCH ×2 (08:30→21:01)
[2020-04-10] MEDS: ASPIRIN EC 81 MG TAB PO SCH (08:30)
[2020-04-10] MEDS: ISOSORBIDE MONO SR 60 MG TAB PO SCH ×2 (08:31→21:01)
[2020-04-10] MEDS: VALSARTAN 160 MG TAB PO SCH ×2 (08:31→21:01)
[2020-04-10] MEDS: GABAPENTIN 300 MG CAP PO SCH ×2 (08:31→21:01)
[2020-04-10] MEDS: SPIRONOLACTONE 25 MG TABLET PO SCH ×2 (08:31→21:03)
[2020-04-10] MEDS: lisinopriL 10 MG TAB PO SCH ×3 (08:31→21:02)
[2020-04-10] MEDS: SERTRALINE HCL 50 MG TAB PO SCH (08:31)
[2020-04-10] MEDS: HOME MED 1 EA UNK (Brinzolamide [Azopt] 1 DROP) OP SCH ×3 (08:32→21:00)
[2020-04-10] MEDS: ATORVASTATIN 40 MG TAB PO SCH (08:32)
[2020-04-10] MEDS: carvediloL 12.5 MG TAB PO SCH ×2 (08:32→21:01)
[2020-04-10] MEDS: HYDRALAZINE HCL 25 MG TABLET PO SCH ×4 (08:32→21:00)
[2020-04-10] MEDS: CLOPIDOGREL 75 MG TABLET PO SCH (08:32)
[2020-04-10] MEDS: INSULIN LISPRO 100 UNIT/1 ML SQ SCH ×4 (08:33→16:30)
[2020-04-10] MEDS: INSULIN GLARGINE 100 UNITS/ML SQ SCH ×2 (08:33→21:00)
[2020-04-10] MEDS: ENOXAPARIN 40 MG/0.4 ML SQ SCH (08:34)
[2020-04-10] MEDS: CEFTRIAXONE/SWI 1gm 1 GM/10 ML SYR IV SCH (08:35)
--- NOTE | 2020-04-10 08:39 | ECHO ---
HEIGHT: 4 ft 8 in WEIGHT: 152 lb 12.8 oz DATE OF STUDY: 04/09/[address]: Paulie Anne MD 2-DIMENSIONAL: YES M.MODE: YES DOPPLER: YES COLOR FLOW: YES TDS: YES PORTABLE: NO DEFINITY: NO BUBBLE STUDY: NO DIAGNOSIS: CONGESTIVE HEART FAILURE CARDIAC HISTORY: CATHERIZATION: NO SURGERY: NO PROSTHETIC VALVE: NO PACEMAKER: NO MEASUREMENTS (cm) DIASTOLIC (NORMALS) SYSTOLIC (NORMALS) IVSd 0.9 (0.6-1.2) LA Diam 3.7 (1.9-4.0) LVEF 47% LVIDd 4.3 (3.5-5.7) LVIDs 3.3 (2.0-3.5) %FS 23% LVPWd 1.0 (0.6-1.2) Ao Diam 2.5 (2.0-3.7) 2 DIMENSIONAL ASSESSMENT: RIGHT ATRIUM: NORMAL LEFT ATRIUM: NORMAL RIGHT VENTRICLE: NORMAL LEFT VENTRICLE: DEPRESSED LV FUNCTION TRICUSPID VALVE: NORMAL MITRAL VALVE: PULMONIC VALVE: NORMAL AORTIC VALVE: PERICARDIAL EFFUSION: NONE AORTIC ROOT: NORMAL LEFT VENTRICULAR WALL MOTION: DISTAL ANTEROSEPTAL HYPOKINESIS. DOPPLER/COLOR FLOW: MILD MITRAL AND AORTIC INSUFFICIENCY. DIASTOLIC DYSFUNCTION. COMMENTS: MILDLY DEPRESSED LEFT VENTRICULAR EJECTION FRACTION 40-45%. ANTEROSEPTAL AND ANTERIOR HYPOKINESIS (DISTAL). DIASTOLIC DYSFUNCTION. MILD MITRAL REGURGITATION, MILD AORTIC INSUFFICIENCY. TECHNOLOGIST: NORMAN OSMAN
[2020-04-10] MEDS ORDERED: POTASSIUM CHLORIDE 20 MEQ PO SCH (09:00)
--- NOTE | 2020-04-10 10:58 | P.PN ---
Subjective Date of Service: 04/10/20 Chief Complaint: Acute respiratory distress Subjective: No new changes, Improving Review of Systems 10-point ROS is otherwise unremarkable Physical Examination - Vital Signs Temperature: 97.9 F Blood Pressure: 110/53 Pulse: 87 Respirations: 20 Pulse Ox (%): 95 - Physical Exam General: Alert, In no apparent distress HEENT: Atraumatic, Normocephalic Neck: Supple, 2+ carotid pulse no bruit Respiratory: Diminished, Crackles/rales Cardiovascular: Normal pulses, Regular rate/rhythm Capillary refill: <2 Seconds Gastrointestinal: Soft and benign, W/out hepatosplenomegaly Musculoskeletal: No clubbing, No swelling, Swelling Integumentary: No rashes, No tenderness/swelling Neurological: Normal speech, Normal strength at 5/5 x4 extr Lymphatics: No axilla or inguinal lymphadenopathy Urinary: Other (no bladder distention) Assessment & Plan - Problems (Diagnosis) (1) Acute CHF Current Visit: Yes Status: Acute Qualifiers: Heart failure type: diastolic Qualified Code(s): I50.31 - Acute diastolic (congestive) heart failure (2) History of coronary artery disease Current Visit: Yes Status: Acute (3) History of heart artery stent Current Visit: Yes Status: Acute (4) Malignant hypertension Current Visit: Yes Status: Acute (5) Pulmonary edema Current Visit: Yes Status: Acute (6) Respiratory failure Current Visit: Yes Status: Acute Qualifiers: Chronicity: acute on chronic (7) Type 2 diabetes mellitus Current Visit: Yes Status: Acute Qualifiers: Diabetes mellitus complication status: without complication Physician Review Additional Text: Acute on chronic CHF exacerbation combined systolic/diastolic Acute hypoxic respiratory failure Acute COPD exacerbation Accelerated hypertension Hyperglycemia with uncontrolled diabetes Pulmonary edema NSTEMI versus troponin leak CAD status post stents Plan Monitor closely under telemetry Trended cardiac enzymes Aggressive diuresis Oxygen supplementation, was on BiPAP initially Appreciate help from pulmonology and cardiac Continue bronchodilators and steroids Echocardiogram Echo showed mildly depressed LV function with EF of 40-45%, anteroseptal and anterior hypokinesis, diastolic dysfunction, mild MR and mild AR Aggressive diuresis Antihypertensives titrated Insulin sliding scale Fluid restriction GI/DVT prophylaxis Advanced directives full code Time Spent Managing Pts Care (In Minutes): 45
--- NOTE | 2020-04-10 11:11 | P.PN ---
Subjective Date of Service: 04/10/20 Chief Complaint: Congestive heart failure Subjective: Improving ( patient is improving off BiPAP still feeling a little weak) Review of Systems General: Weakness Respiratory: Shortness of Breath Physical Examination - Vital Signs Temperature: 97.9 F Blood Pressure: 110/53 Pulse: 87 Respirations: 20 Pulse Ox (%): 95 - Physical Exam General: Alert, Oriented x3 Respiratory: Clear to auscultation bilaterally Cardiovascular: No edema Assessment & Plan - Problems (Diagnosis) (1) Respiratory failure Current Visit: Yes Status: Acute Plan: patient admitted with congestive heart failure she is doing much better on room air right now labs are pending echocardiogram shows diminished left ventricular ejection fraction plan for discharge check labs today spironolactone has been added patient has a culinary internship in [place] Qualifiers: Chronicity: acute on chronic
--- NOTE | 2020-04-10 11:30 | PN ---
Subjective: The patient was seen by Dr. Akers and Dr. Vasquez yesterday, 04/09/2020 for congestive he art failure. She has elevated troponin. She did not have any chest pain. Subjectively, this mornin g she was having no complaint. Her breathing is better. Her edema has been reviewed. She remains i n sinus rhythm. Objective: Vital Signs: Her vital signs were stable. She was afebrile. Chest: Her chest was clear. Cardiac: Exam revealed a regular rhythm and rate. No murmurs, gallops, or rubs. Abdomen: Her abdomen is obese, but benign. Extremities: Revealed trace edema. Diagnostic Data: She has a troponin of 0.37. Her glucose was 429. Impression And Plan: 1.Acute on chronic diastolic congestive heart failure. Echocardiogram is pending. 2.Respiratory failure secondary to congestive heart failure. 3.Hypertension. 4.Coronary artery disease. 5.Diabetes. I think her troponin elevation is secondary to congestive heart failure. We will see w hat her echocardiogram shows. Her BNP is only 536 and better improved. She is presently on Lasix, h ydralazine, insulin, Imdur, Aldactone, Lovenox, labetalol, Coreg, valsartan, antibiotics, and inhaler s. We will continue present regimen. Pulmonology is following. We will her wean off an O2 nasal ca nnula today. We will see what her echocardiogram shows and otherwise, continue present regimen. Hopefully send her home in the next da y or 2. ADITI/OSMIN Voice ID: [id number] Report ID: [id number]
[2020-04-10 12:33] LABS: Potassium 3.5 mmol/L (3.5-5.1)
[2020-04-10 13:21] LABS: Magnesium 2.2 mg/dL (1.8-2.4); Phosphorus 3.5 mg/dL (2.5-4.9)
[2020-04-10] MEDS ORDERED: POTASSIUM CL SA 10 MEQ TAB PO ONE (14:05)
[2020-04-10] MEDS: INSULIN GLARGINE 100 UNITS/ML SQ ONE (21:06)
[2020-04-10] MEDS ORDERED: INSULIN GLARGINE 100 UNITS/ML SQ ONE (21:07)
[2020-04-11] MEDS ORDERED: GLUCAGON 1 MG/VIAL IM PRN (00:32)
[2020-04-11] MEDS ORDERED: D50W 25 GM/50 ML SYRINGE/VIAL IV PRN (00:32)
[2020-04-11] MEDS ORDERED: INSULIN GLARGINE 100 UNITS/ML SQ ONE (00:34)
[2020-04-11] MEDS: FUROSEMIDE 40 MG/4 ML VIAL IV SCH ×3 (00:48→17:51)
--- NOTE | 2020-04-11 08:33 | RAD REPORT ---
EXAM DESCRIPTION: RAD - Chest Single View - 04/11/2020 8:25 am CLINICAL HISTORY: chf Chest pain. COMPARISON: Chest Single View dated 04/08/2020 FINDINGS: Portable technique limits examination quality. Since 04/08/2020, previously noted pulmonary interstitial lung opacities have moderately improved. Th e heart is moderately enlarged in size. No displaced fractures. IMPRESSION: Moderate improvement in lung aeration since the comparative study.
[2020-04-11] MEDS: ARFORMOTEROL TARTRATE 15 MCG/2 ML VIAL.NEB NEB SCH ×2 (08:58→19:25)
[2020-04-11] MEDS: HYDRALAZINE HCL 25 MG TABLET PO SCH ×5 (09:00→23:16)
[2020-04-11] MEDS: HOME MED 1 EA UNK (Brinzolamide [Azopt] 1 DROP) OP SCH ×3 (09:00→21:00)
[2020-04-11] MEDS: POTASSIUM CL SA 10 MEQ TAB PO SCH (09:05)
[2020-04-11] MEDS: CLOPIDOGREL 75 MG TABLET PO SCH (09:05)
[2020-04-11] MEDS: ATORVASTATIN 40 MG TAB PO SCH (09:05)
[2020-04-11] MEDS: carvediloL 12.5 MG TAB PO SCH ×2 (09:05→21:26)
[2020-04-11] MEDS: GABAPENTIN 300 MG CAP PO SCH ×2 (09:05→21:26)
[2020-04-11] MEDS: ASPIRIN EC 81 MG TAB PO SCH (09:05)
[2020-04-11] MEDS: SERTRALINE HCL 50 MG TAB PO SCH (09:05)
[2020-04-11] MEDS: ISOSORBIDE MONO SR 60 MG TAB PO SCH ×2 (09:06→21:26)
[2020-04-11] MEDS: HYDROXYCHLOROQUINE 200MG TAB PO SCH ×2 (09:06→21:26)
[2020-04-11] MEDS: VALSARTAN 160 MG TAB PO SCH ×2 (09:06→21:25)
[2020-04-11] MEDS: lisinopriL 10 MG TAB PO SCH ×2 (09:06→21:25)
[2020-04-11] MEDS: SPIRONOLACTONE 25 MG TABLET PO SCH ×2 (09:06→21:26)
[2020-04-11] MEDS: ENOXAPARIN 40 MG/0.4 ML SQ SCH (09:09)
[2020-04-11] MEDS: INSULIN LISPRO 100 UNIT/1 ML SQ SCH ×3 (09:10→17:51)
[2020-04-11] MEDS: INSULIN GLARGINE 100 UNITS/ML SQ SCH ×2 (09:20→20:50)
--- NOTE | 2020-04-11 10:53 | P.PN ---
Subjective Date of Service: 04/11/20 Chief Complaint: Acute respiratory distress Subjective: No new changes, No C/O voiced Review of Systems 10-point ROS is otherwise unremarkable Physical Examination - Vital Signs Temperature: 97.1 F Blood Pressure: 133/61 Pulse: 79 Respirations: 17 Pulse Ox (%): 97 - Physical Exam General: Alert, In no apparent distress, Oriented x3 HEENT: Atraumatic, Normocephalic Neck: Supple, 2+ carotid pulse no bruit Respiratory: Diminished, Crackles/rales Cardiovascular: Regular rate/rhythm, Normal S1 S2 Capillary refill: <2 Seconds Gastrointestinal: Soft and benign, W/out hepatosplenomegaly Musculoskeletal: No clubbing, No swelling Integumentary: No rashes Neurological: Normal speech, Normal strength at 5/5 x4 extr Lymphatics: No axilla or inguinal lymphadenopathy Assessment & Plan - Problems (Diagnosis) (1) Acute CHF Current Visit: Yes Status: Acute Qualifiers: Heart failure type: diastolic Qualified Code(s): I50.31 - Acute diastolic (congestive) heart failure (2) History of coronary artery disease Current Visit: Yes Status: Acute (3) History of heart artery stent Current Visit: Yes Status: Acute (4) Malignant hypertension Current Visit: Yes Status: Acute (5) Pulmonary edema Current Visit: Yes Status: Acute (6) Respiratory failure Current Visit: Yes Status: Acute Qualifiers: Chronicity: acute on chronic (7) Type 2 diabetes mellitus Current Visit: Yes Status: Acute Qualifiers: Diabetes mellitus complication status: without complication Physician Review Additional Text: Acute on chronic CHF exacerbation combined systolic/diastolic Acute hypoxic respiratory failure Acute COPD exacerbation Accelerated hypertension Hyperglycemia with uncontrolled diabetes Pulmonary edema NSTEMI versus troponin leak CAD status post stents Plan Monitor closely under telemetry Trended cardiac enzymes Aggressive diuresis Oxygen supplementation, was on BiPAP initially Appreciate help from pulmonology and cardiac Continue bronchodilators and steroids Echocardiogram Echo showed mildly depressed LV function with EF of 40-45%, anteroseptal and anterior hypokinesis, diastolic dysfunction, mild MR and mild AR Aggressive diuresis Antihypertensives titrated Insulin sliding scale Fluid restriction GI/DVT prophylaxis Advanced directives full code 04/11/2020 Clinically much better Shortness of breath improved Still on oxygen Support Will get home O2 assessment Continue diuresis and bronchodilators Possibly may need home O2 Appreciate help from cardiology and pulmonology Possible Dc in a.m. Time Spent Managing Pts Care (In Minutes): 39
[2020-04-11 12:06] LABS: Potassium 4.1 mmol/L (3.5-5.1)
--- NOTE | 2020-04-11 13:10 | PN ---
Date of Progress Note: 04/11/2020 Subjective: Ms. Aguero is feeling better. She denied shortness of breath, chest pain. She denied P ND, orthopnea, or pedal edema. Objective: Vital Signs: Stable. She is in sinus rhythm. Chest: Clear. Cardiac: Exam is normal rhythm with mild aortic regurgitation, murmur. No S4 or S3. Extremities: She had trace edema. Diagnostic Data: Yesterday echocardiogram showed an ejection fraction of 47% with anteroseptal anter ior hypokinesis, mild MR, mild AR. Impression And Plan: Ms. Aguero is a patient with acute on chronic systolic congestive heart failure , elevated troponin secondary to that. She has a history of hypertension and diabetes that are well controlled. She is doing much better. I would continue her present regimen. Her last creatinine is 1.37. She remained in sinus rhythm. From my standpoint, she can go home and follow up with her [facility] physician. She is not from town. She should definitely have an outpatient stress test wit h caring physician down the road. ADITI/OSMIN Voice ID: [id number] Report ID: [id number]
[2020-04-11] MEDS: TEMAZEPAM 15 MG CAP PO SCH (21:25)
[2020-04-12] MEDS: FUROSEMIDE 40 MG/4 ML VIAL IV SCH ×2 (01:30→08:34)
[2020-04-12] MEDS: VALSARTAN 160 MG TAB PO SCH (08:30)
[2020-04-12] MEDS: ATORVASTATIN 40 MG TAB PO SCH (08:31)
[2020-04-12] MEDS: ASPIRIN EC 81 MG TAB PO SCH (08:31)
[2020-04-12] MEDS: carvediloL 12.5 MG TAB PO SCH (08:31)
[2020-04-12] MEDS: SPIRONOLACTONE 25 MG TABLET PO SCH (08:31)
[2020-04-12] MEDS: GABAPENTIN 300 MG CAP PO SCH (08:31)
[2020-04-12] MEDS: HYDRALAZINE HCL 25 MG TABLET PO SCH (08:31)
[2020-04-12] MEDS: lisinopriL 10 MG TAB PO SCH (08:31)
[2020-04-12] MEDS: ISOSORBIDE MONO SR 60 MG TAB PO SCH (08:32)
[2020-04-12] MEDS: SERTRALINE HCL 50 MG TAB PO SCH (08:32)
[2020-04-12] MEDS: POTASSIUM CL SA 10 MEQ TAB PO SCH (08:32)
[2020-04-12] MEDS: HYDROXYCHLOROQUINE 200MG TAB PO SCH (08:32)
[2020-04-12] MEDS: INSULIN GLARGINE 100 UNITS/ML SQ SCH (08:32)
[2020-04-12] MEDS: CLOPIDOGREL 75 MG TABLET PO SCH (08:32)
[2020-04-12] MEDS: INSULIN LISPRO 100 UNIT/1 ML SQ SCH ×2 (08:33→11:46)
[2020-04-12] MEDS: ARFORMOTEROL TARTRATE 15 MCG/2 ML VIAL.NEB NEB SCH (08:40)
[2020-04-12] MEDS ORDERED: SENOSIDES 8.6 MG TAB PO SCH (09:00)
[2020-04-12] MEDS ORDERED: ENOXAPARIN 30 MG/0.3 ML SQ SCH (09:00)
[2020-04-12] MEDS: HOME MED 1 EA UNK (Brinzolamide [Azopt] 1 DROP) OP SCH (09:00)
[2020-04-12] MEDS ORDERED: POLYETHYL GLY 3350 17 GM/DOSE PO SCH (09:00)
[2020-04-12 09:53] VITALS: O2SAT 96
--- NOTE | 2020-04-12 11:23 | P.DS ---
Admission Date: 04/08/20 Discharge Date: 04/12/20 Disposition: ROUTINE DISCHARGE Discharge Condition: GOOD Reason for Admission: Acute respiratory distress - Problems (1) Acute CHF Status: Acute Qualifiers: Heart failure type: diastolic Qualified Code(s): I50.31 - Acute diastolic (congestive) heart failure (2) History of coronary artery disease Status: Acute (3) History of heart artery stent Status: Acute (4) Malignant hypertension Status: Acute (5) Pulmonary edema Status: Acute (6) Respiratory failure Status: Acute Qualifiers: Chronicity: acute on chronic (7) Type 2 diabetes mellitus Status: Acute Qualifiers: Diabetes mellitus complication status: without complication Brief History of Present Illness: 69-year-old female came to the hospital with respiratory distress. Patient was having difficulty breathing and came into the ER. Her family lives in [place]. I am not really sure why she was brought to our facility, but there has been over crowding in the facilities in the [place] area. She has been at [facility] a year ago for similar episode of respiratory distress. At that time, she was given BiPAP support and her symptoms gradually improved. The family relates that it was similar to an asthma exacerbation. However, in light of the fact that she has a history of Coronary artery disease with stent placement my concern is that she may have CHF. Her BNP was normal. However, she does have JVP distention. She does not have any lower extremity edema but her chest x-ray shows bilateral infiltrates. At this time, I will admit patient to the hospital for further evaluation. Hospital Course: Acute on chronic CHF exacerbation combined systolic/diastolic Acute hypoxic respiratory failure Acute COPD exacerbation Accelerated hypertension Hyperglycemia with uncontrolled diabetes Pulmonary edema NSTEMI Type II CAD status post stents Plan Monitor closely under telemetry Trended cardiac enzymes Aggressive diuresis Oxygen supplementation, was on BiPAP initially Appreciate help from pulmonology and cardiac Continue bronchodilators and steroids Echocardiogram Echo showed mildly depressed LV function with EF of 40-45%, anteroseptal and anterior hypokinesis, diastolic dysfunction, mild MR and mild AR Aggressive diuresis Antihypertensives titrated Insulin sliding scale Fluid restriction GI/DVT prophylaxis Advanced directives full code 04/11/2020 Clinically much better Shortness of breath improved Still on oxygen Support Will get home O2 assessment Continue diuresis and bronchodilators Possibly may need home O2 Appreciate help from cardiology and pulmonology Possible Dc in a.m. Vital Signs/Physical Exam: Temp Pulse Resp BP Pulse Ox 97.8 F 80 18 143/67 H 91 04/12/20 08:00 04/12/20 08:00 04/12/20 08:00 04/12/20 08:00 04/12/20 08:00 General: Alert, In no apparent distress HEENT: Atraumatic, Normocephalic Neck: Supple, 2+ carotid pulse no bruit Respiratory: Clear to auscultation bilaterally, Normal air movement Cardiovascular: Regular rate/rhythm Capillary refill: <2 Seconds Gastrointestinal: Hypoactive, Soft and benign Musculoskeletal: No clubbing, No swelling Neurological: Normal strength at 5/5 x4 extr Lymphatics: No axilla or inguinal lymphadenopathy Laboratory Data at Discharge: WBC 10.9 K/uL (4.3-10.9) D 04/09/20 04:11 Hgb 13.9 g/dL (12.0-15.0) 04/09/20 04:11 Hct 40.9 % (36.0-45.0) 04/09/20 04:11 Plt Count 188 K/uL (152-406) 04/09/20 04:11 PT 11.6 SECONDS (9.5-12.5) 04/08/20 20:30 INR 0.98 04/08/20 20:30 APTT 33.8 SECONDS (24.3-36.9) 04/08/20 20:30 Sodium 140 mmol/L (136-145) 04/11/20 11:40 Potassium 4.1 mmol/L (3.5-5.1) 04/11/20 11:40 BUN 52 mg/dL (7-18) H 04/11/20 11:40 Creatinine 1.38 mg/dL (0.55-1.3) H 04/11/20 11:40 Glucose 197 mg/dL (74-106) H 04/11/20 11:40 Phosphorus 3.5 mg/dL (2.5-4.9) 04/10/20 12:02 Magnesium 2.2 mg/dL (1.8-2.4) 04/10/20 12:02 Total Bilirubin 0.3 mg/dL (0.2-1.0) 04/09/20 04:11 AST 19 U/L (15-37) 04/09/20 04:11 ALT 30 U/L (12-78) 04/09/20 04:11 Alkaline Phosphatase 113 U/L (45-117) 04/09/20 04:11 Troponin I 0.37 ng/mL (0.0-0.045) H 04/09/20 15:50 Triglycerides 47 mg/dL (<150) 04/09/20 04:11 Cholesterol 118 mg/dL (<200) 04/09/20 04:11 HDL Cholesterol 57 mg/dL (40-60) 04/09/20 04:11 Cholesterol/HDL Ratio 2.07 04/09/20 04:11 Amylase 69 U/L (25-115) 04/08/20 20:30 Lipase 114 U/L (73-393) 04/08/20 20:30 Home Medications: Aspirin [Adult Low Dose Aspirin EC] 81 mg PO DAILY 04/09/20 Atorvastatin Calcium 40 mg PO DAILY 04/09/20 Bimatoprost [Lumigan Opthalmic Drops*] 1 drop OP BEDTIME 04/09/20 Brinzolamide [Azopt] 1 drop OP TID 04/09/20 Carvedilol [Coreg] 12.25 mg PO BID 04/09/20 Clopidogrel Bisulfate [Plavix*] 75 mg PO DAILY 04/09/20 Furosemide [Lasix*] 60 mg PO BIDL 04/09/20 Gabapentin 300 mg PO BID 04/09/20 Hydroxychloroquine [Plaquenil*] 200 mg PO BID 04/09/20 Insulin Glargine,Hum.rec.anlog [Lantus Solostar] 30 unit SQ BEDTIME 04/09/20 Insulin Glargine,Hum.rec.anlog [Lantus Solostar] 34 unit SQ DAILY 04/09/20 Insulin Lispro [Humalog] 14 unit SQ AC 04/09/20 Isosorbide Mononitrate [Isosorbide Mononitrate ER] 60 mg PO BID 04/09/20 Potassium Chloride [K-Dur] 20 meq PO DAILY 04/09/20 Sertraline [Zoloft*] 50 mg PO DAILY 04/09/20 Temazepam 30 mg PO BEDTIME 04/09/20 Arformoterol Tartrate [Brovana] 15 mcg NEB BIDRESP #1 vial.neb 04/12/20 Furosemide [Lasix] 40 mg PO BID #60 tablet 04/12/20 Spironolactone [Aldactone*] 25 mg PO BID #60 tab 04/12/20 Valsartan [Diovan*] 160 mg PO BID #60 tab 04/12/20 New Medications: Spironolactone [Aldactone*] 25 mg PO BID #60 tab Arformoterol Tartrate [Brovana] 15 mcg NEB BIDRESP #1 vial.neb Valsartan [Diovan*] 160 mg PO BID #60 tab Furosemide [Lasix] 40 mg PO BID #60 tablet Diet: ADA Followup: Blayne Engel MD [ACTIVE - CAN ADMIT] - Jass Briceño MD [ACTIVE - CAN ADMIT] - Time spent managing pt's care (in minutes): 42
[2020-04-12 12:44] VITALS: BP 104/55; TEMP 98.7
== END 2020-04-12 13:10 | disposition home or self-care (01) | DRG 280 ==
LOC: ER 20:15 → ERHOLD 23:29 → 4TH 23:50 → 2ND 04-09 11:03
PROVIDERS: ADMIT Family Medicine; ATTEND Family Medicine
DX: I11.0 Hypertensive heart disease with heart failure (principal); I21.A1 Myocardial infarction type 2; J96.21 Acute and chronic respiratory failure with hypoxia; J96.22 Acute and chronic respiratory failure with hypercapnia; J44.1 Chronic obstructive pulmonary disease with (acute) exacerbation; I50.43 Acute on chronic combined systolic (congestive) and diastolic (congestive) heart failure; E11.65 Type 2 diabetes mellitus with hyperglycemia; I25.10 Atherosclerotic heart disease of native coronary artery without angina pectoris; Z95.5 Presence of coronary angioplasty implant and graft; Z20.828 Contact with and (suspected) exposure to other viral communicable diseases; Z79.82 Long term (current) use of aspirin; Z79.02 Long term (current) use of antithrombotics/antiplatelets; Z79.899 Other long term (current) drug therapy; Z79.4 Long term (current) use of insulin
CPT/HCPCS: 36415; 51702; 71045; 71275; 80048; 80053; 80061; 80076; 81003; 81015; 82150; 82550; 82553; 82805; 82947; 83605; 83690; 83735; 83880; 84100; 84145; 84484; 85025; 85610; 85730; 87040; 87081; 87804; 93005; 93306; 94640; 94660; 94760; 96365; 96375; 99285; J0360; J0456; J0696; J1650; J1815; J1940; J2405; J2920; J2930; J7050; J7605; Q9967; U0002